=== PATIENT | female | born 1960 | race Caucasian/White ===

== ENCOUNTER 2017-03-27 13:42 | Day surgery (SDC) | payer MEDICAID, OTHER ==
[~2017-03-27 13:42] MED LIST: Lactated Ringers 1,000 ML IV SCH; Lidocaine 1% 4 ML ONE; Lidocaine 1%/Sod Bicarbonate in NS 8.4% 1 ML Syringe IV PRN; Propofol 200 MG/20 ML SDV ONE; Sodium Chloride 0.9% 10 ML Syringe FLUSH PRN; fentaNYL 100 MCG/2 ML SDV ONE
--- NOTE | 2017-03-27 14:24 | PCM.PREANE ---
Preanesthetic Assessment - Procedure Proposed Procedure: High risk screening colonoscopy - Anesthesia/Transfusion/Family Hx Anesthesia History: Prior Anesthesia Without Reaction Type of Anesthesia Reaction: Unknown Family History of Anesthesia Reaction: No Transfusion History: No Prior Transfusion(s) Type of Transfusion Reactions: Reports: Unknown Intubation History: Unknown - Review of Systems General: No Symptoms Pulmonary: No Symptoms Cardiovascular: Other (HLD, HTN, AAA 4.7cm, ) Gastrointestinal: No symptoms Neurological: No Symptoms Other: Reports: Easy Bruising - Physical Assessment NPO Status Date: 03/27/17 NPO Status Time: 07:00 O2 Sat by Pulse Oximetry: 96 Respiratory Rate: 16 Vital Signs: Last Vital Signs Temp 36.2 C 03/27/17 13:55 Pulse 57 L 03/27/17 13:55 Resp 16 03/27/17 13:55 BP 128/73 03/27/17 13:55 Pulse Ox 96 03/27/17 13:55 Height: 1.68 m Weight: 70.307 kg ASA Class: 2 Mental Status: Alert & Oriented x3 Airway Class: Mallampati = 1 Dentition: Reports: Normal Dentition Thyro-Mental Finger Breadths: 3 Mouth Opening Finger Breadths: 3 Lungs: Clear to auscultation, Normal respiratory effort Cardiovascular: Regular Rate, Regular Rhythm - Allergies Allergies/Adverse Reactions: Allergies Allergy/AdvReac Type Severity Reaction Status Date / Time No Known Allergies Allergy Verified 03/26/17 15:36 - Blood Blood Available: No Product(s) Available: None - Anesthesia Plan Pre-Op Medication Ordered: None Beta Ibis: Metoprolol Med Last Dose Date: 03/27/17 Med Last Dose Time: 07:00 - Acknowledgements Anesthesia Type Planned: MAC Pt an Appropriate Candidate for the Planned Anesthesia: Yes Alternatives and Risks of Anesthesia Discussed w Pt/Guardian: Yes Pt/Guardian Understands and Agrees with Anesthesia Plan: Yes PreAnesthesia Questionnaire HEENT History: Reports: Impaired Vision, Other (See Below) Other HEENT History: glasses, tinnitus Cardiovascular History: Reports: Aneurysm, Heart Murmur, Hypertension, Other ( See Below) Other Cardiovascular History: non rheumatic aortic valve insufficiency, aortic regurgitation, diastolic dysfunction Respiratory History: Reports: None Gastrointestinal History: Reports: None Genitourinary History: Reports: None 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: , 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 , Other (See Below) Other OB/BYN History: uterine fibroid Musculoskeletal History: Reports: None Neurological History: Reports: None Psychiatric History: Reports: None Endocrine/Metabolic History: Reports: None Hematologic History: Reports: None Immunologic History: Reports: None Oncologic (Cancer) History: Reports: None Dermatologic History: Reports: None - Past Surgical History Head Surgeries/Procedures: Reports: None - SUBSTANCE USE Smoking Status *Q: Never Smoker Recreational Drug Use History: No - HOME MEDS Home Medications: Home Meds Aspirin 81 mg PO DAILY 03/26/17 [History] Hydrochlorothiazide 25 mg PO DAILY 03/26/17 [History] Metoprolol Succinate 50 mg PO DAILY 03/26/17 [History] atorvaSTATin [Lipitor] 10 mg PO DAILY 03/26/17 [History] - CURRENT (IN HOUSE) MEDS Current Meds: Current Medications Lactated Ringer's (Ringers, Lactated) 1,000 mls @ 125 mls/hr IV ASDIRECTED HOWARD Last Admin: 03/27/17 14:05 Dose: 125 mls/hr Lidocaine/Sodium Bicarbonate (Buffered Lidocaine 1% In Ns 8.4%) 0.25 ml IV ONETIME PRN PRN Reason: Prior to IV Start Last Admin: 03/27/17 14:05 Dose: 0.25 ml Sodium Chloride (Saline Flush) 10 ml FLUSH ASDIRECTED PRN PRN Reason: Keep Vein Open Discontinued Medications Fentanyl (Sublimaze) Confirm Administered Dose 100 mcg .ROUTE .STK-MED ONE Stop: 03/27/17 08:08 Lidocaine HCl (Xylocaine-Mpf 1%) Confirm Administered Dose 4 mls @ as directed .ROUTE .STK-MED ONE Stop: 03/27/17 08:08 Propofol (Diprivan 20 Ml) Confirm Administered Dose 200 mg .ROUTE .STK-MED ONE Stop: 03/27/17 08:08
--- NOTE | 2017-03-27 15:04 | PCM.CONS ---
H&P History of Present Illness - General Date of Service: 03/27/17 Source of Information: Patient History Limitations: Reports: No Limitations - History of Present Illness Initial Comments - Free Text/Narative: 56 yo woman presenting for high risk screening colonoscopy. No changes in her health since last seen in the office. No abdominal symptoms. No hematochezia/ melena. - Related Data Allergies/Adverse Reactions: Allergies Allergy/AdvReac Type Severity Reaction Status Date / Time No Known Allergies Allergy Verified 03/26/17 15:36 Home Medications: Home Meds Aspirin 81 mg PO DAILY 03/26/17 [History] Hydrochlorothiazide 25 mg PO DAILY 03/26/17 [History] Metoprolol Succinate 50 mg PO DAILY 03/26/17 [History] atorvaSTATin [Lipitor] 10 mg PO DAILY 03/26/17 [History] Past Medical History HEENT History: Reports: Impaired Vision, Other (See Below) Other HEENT History: glasses, tinnitus Cardiovascular History: Reports: Aneurysm, Heart Murmur, Hypertension, Other ( See Below) Other Cardiovascular History: non rheumatic aortic valve insufficiency, aortic regurgitation, diastolic dysfunction Respiratory History: Reports: None Gastrointestinal History: Reports: None Genitourinary History: Reports: None 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: , 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 , 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 (See Below) Other OB/BYN History: uterine fibroid Musculoskeletal History: Reports: None Neurological History: Reports: None Psychiatric History: Reports: None Endocrine/Metabolic History: Reports: None Hematologic History: Reports: None Immunologic History: Reports: None Oncologic (Cancer) History: Reports: None Dermatologic History: Reports: None - Past Surgical History Head Surgeries/Procedures: Reports: None Social & Family History - Tobacco Use Smoking Status *Q: Never Smoker - Caffeine Use Caffeine Use: Reports: None - Recreational Drug Use Recreational Drug Use: No Drug Use in Last 12 Months: No H&P Review of Systems - Review of Systems: Review Of Systems: ROS reveals no pertinent complaints other than HPI. Exam - Exam Exam: See Below - Vital Signs Vital Signs: Last Vital Signs Temp 97.2 F 03/27/17 13:55 Pulse 57 L 03/27/17 13:55 Resp 16 03/27/17 14:37 BP 128/73 03/27/17 13:55 Pulse Ox 96 03/27/17 14:37 Weight: 155 lb - Exam General: Alert, Oriented, Cooperative HEENT: Conjunctiva Clear Lungs: Clear to Auscultation, Normal Respiratory Effort Cardiovascular: Regular Rate, Regular Rhythm Abdomen: Soft. No: Distention, Guarding (Female) Exam: Deferred Rectal (Female) Exam: Deferred Extremities: No: Clubbing, Cyanosis, Edema Skin: Warm, Dry, Intact Neurological: Normal Speech. No: Focal Deficit Neuro Extensive - Mental Status: Alert, Oriented x3, Normal Mood/Affect, Normal Cognition Consult PN Assessment/Plan Procedures: Procedures COMP SCREEN MAMMOGRAM ADD-ON (02/07/15) (1) High risk for colon cancer SNOMED Code(s): 217552012, 887633430 Code(s): Z91.89 - OTH PERSONAL RISK FACTORS, NOT ELSEWHERE CLASSIFIED Current Visit: Yes Problem List Initiated/Reviewed/Updated: Yes Plan: 56 yo woman with need for high risk screening colonoscopy Proceed as planned. Patient had no questions or concerns.
--- NOTE | 2017-03-27 15:52 | PCM.OPNOTE ---
- General Post-Op/Procedure Note Date of Surgery/Procedure: 03/27/17 Operative Procedure(s): High risk screening colonoscopy with cold forceps biopsy Pre Op Diagnosis: Family history of colon cancer in mother Post-Op Diagnosis: Splenic flexure polyp Anesthesia Technique: MAC Primary Surgeon: Chelle Solorio Anesthesia Provider: Raghu Ramirez Pathology: Splenic flexure polyp EBL in mLs: 1 Complications: None Condition: Good Free Text/Narrative:: FLUIDS: 700 mL crystalloid INDICATION FOR PROCEDURE: The patient is a 56-year-old woman who was referred to me by Dr. Bernadette Bautista and JOSÉ MIGUEL Padilla for evaluation for high risk screening colonoscopy . Performing a high risk screening colonoscopy and the associated risks of the procedure had been discussed with the patient. The patient found these risks acceptable and agreed to proceed. DESCRIPTION OF PROCEDURE: The patient was taken to the operating room and placed in left lateral decubitus position. After induction of adequate sedation , a digital rectal exam was performed which was unremarkable. A pediatric Olympus colonoscope was inserted into the rectum and guided under direct visualization to the appendiceal orifice and ileocecal valve. The scope was then slowly withdrawn through the colon. The quality of the prep was good. There was no evidence of angiodysplasias or diverticulum. The scope was withdrawn into the rectum and retroflexed. There was no significant prominence of the patient's internal hemorrhoids. The scope was straightened, the colon was desufflated, and the scope was withdrawn. The patient was awakened from sedation and transferred to the recovery room in stable condition having tolerated the procedure well. POSTOPERATIVE PLAN: I discussed with the patient my intraoperative findings and recommendations. We will send her a letter with her pathology and the timing of her next colonoscopy.
[2017-03-27 16:18] VITALS: BP 120/70
== END 2017-03-27 16:15 | disposition home or self-care (01) ==
LOC: JD.SDS 13:42
PROVIDERS: ATTEND Surgery
DX: Z12.11 Encounter for screening for malignant neoplasm of colon (principal); D12.3 Benign neoplasm of transverse colon; I10 Essential (primary) hypertension; E78.5 Hyperlipidemia, unspecified; I71.4 Abdominal aortic aneurysm, without rupture; Z79.82 Long term (current) use of aspirin; Z79.899 Other long term (current) drug therapy; Z80.0 Family history of malignant neoplasm of digestive organs
CPT/HCPCS: 45380; J3010; J7120; 00810; J2704